=== PATIENT | female | born 1945 | race Caucasian/White ===

== ENCOUNTER → 2023-12-14 19:56 | Outpatient (REF) | payer MEDICARE, OTHER, SELFPAY | LOC: PAVMRI 19:56 | PROVIDERS: ATTENDING PHYSICIAN Orthopaedic Surgery; FAMILY PHYSICIAN Family Medicine; REFERRING PHYSICIAN Internal Medicine | DX: Z47.89 Encounter for other orthopedic aftercare (principal) | CPT/HCPCS: 73721 ==

== ENCOUNTER → 2024-02-13 12:45 | Outpatient (REF) | payer MEDICARE, OTHER, SELFPAY | LOC: WDC 12:45 | PROVIDERS: ATTENDING PHYSICIAN Nurse Practitioner Family; FAMILY PHYSICIAN Family Medicine | DX: M81.0 Age-related osteoporosis without current pathological fracture (principal); Z12.31 Encounter for screening mammogram for malignant neoplasm of breast | CPT/HCPCS: 77063; 77067; 77080 ==

== ENCOUNTER → 2024-02-16 08:58 | Outpatient (REF) | payer MEDICARE, OTHER, SELFPAY | LOC: RCS 08:58 | PROVIDERS: ATTENDING PHYSICIAN Nurse Practitioner; FAMILY PHYSICIAN Family Medicine; REFERRING PHYSICIAN Internal Medicine | DX: R00.1 Bradycardia, unspecified (principal); I10 Essential (primary) hypertension; I71.21 Aneurysm of the ascending aorta, without rupture | CPT/HCPCS: 93306 ==

== ENCOUNTER → 2025-02-21 07:08 | Outpatient (REF) | payer MEDICARE, OTHER, SELFPAY ==
[2025-02-21 08:47] LABS: HDL Cholesterol 98 mg/dl; LDL Cholesterol, Calculated 100 mg/dl; Very Low Density Lipoprotein 18 mg/dl (0-30)
== END ==
LOC: REG 07:08
PROVIDERS: ATTENDING PHYSICIAN Internal Medicine; FAMILY PHYSICIAN Family Medicine
DX: E78.00 Pure hypercholesterolemia, unspecified (principal)
CPT/HCPCS: 36415; 80061

== ENCOUNTER → 2025-02-21 07:29 | Outpatient (REF) | payer MEDICARE, OTHER, SELFPAY | LOC: WDC 07:29 | PROVIDERS: ATTENDING PHYSICIAN Nurse Practitioner Family | DX: Z12.31 Encounter for screening mammogram for malignant neoplasm of breast (principal) | CPT/HCPCS: 77063; 77067 ==

== ENCOUNTER 2025-03-03 12:22 | Emergency (ER) | payer MEDICARE, OTHER, SELFPAY ==
[2025-03-03 12:53] VITALS: BP 120/86
[2025-03-03 12:56] VITALS: BMI 22.8
[2025-03-03 13:00] VITALS: BP 118/92
--- NOTE | 2025-03-03 13:54 | ED.GENMED ---
History of Present Illness
General
Chief Complaint: Bowel Problem
Source: patient
Exam Limitations: none
Time Seen by Provider: 03/03/25 13:44
Nursing documentation reviewed up to this point in time: agreed with
History of Present Illness
History of Present Illness:
79-year-old female with history of COPD,, HTN, hypothyroid presents for not having a good bowel movement for 2 weeks. She states 2 weeks ago she was carrying laundry and tripped over a doggy gate and fell onto her left side, since then she has had
pain in her lumbar spine that has gradually gotten worse. She has taken Fleet enema, Colace, suppositories with no results. Denies abdominal pain. Denies N/V.
Past History
Past History
ED Past Medical History: COPD, HTN, Hypothyroidism and Other (Aortic aneurysm that they are watching)
ED Past Surgical History: Appendectomy, Cholecystectomy, Gynecological (Hysterectomy) and Other (Hernia repair X2)
Social History
Tobacco: Former smoker
Alcohol: Occasional
Personal:
Living: with family (Son lives with her)
Review of Systems
Review of Systems
Allergies reviewed?: Yes
All Other Systems: ROS reviewed and negative except as documented in HPI and ROS
Phy Exam
Physical Exam
Physical Exam:
GENERAL: No acute distress. A&Ox3.
CONSTITUTIONAL: Afebrile.
EYES: clear, conjunctivae normal
ENMT: moist mucus membranes, Pharynx nl
RESPIRATORY: Regular respirations, nonlabored, lungs clear.
CARDIOVASCULAR: Regular rate and rhythm, no murmurs, no rubs.
GI: Soft, nontender, normal BS
MUSCULOSKELETAL: Moves with ease. Well perfused.
SKIN: Warm, dry, pink
PSYCH: Normal mood and affect. Well kept, interactive and appropriate
NEUROLOGIC: Awake, alert and oriented. No focal neurological deficits
Course
Orders/Labs/Results
Orders:
Orders
03/03/25 13:53
LS Spine Complete, 4 View [CR Lumbar Spine Comp Min 4 Vw*] Urgent
Comment:
Reason For Exam: L S spine pain after fall
Vital Signs
Initial and Last Documented VS:
Initial Vital Signs
Temp Pulse Resp BP Pulse Ox
98.4 F 65 18 120/86 95
03/03/25 12:53 03/03/25 12:53 03/03/25 12:53 03/03/25 12:53 03/03/25 12:53
Last Documented Vital Signs
Temp Pulse Resp BP Pulse Ox
98.4 F 53 18 137/98 97
03/03/25 12:56 03/03/25 16:11 03/03/25 12:53 03/03/25 16:11 03/03/25 14:19
MDM/Problems Addressed
Differential Diagnosis Includes:
Constipation
Fracture LS-spine, contusion LS-spine
MDM/Problems Addressed:
79-year-old female with history of COPD,, HTN, hypothyroid presents for not having a good bowel movement for 2 weeks. She states 2 weeks ago she was carrying laundry and tripped over a doggy gate and fell onto her left side, since then she has had
pain in her lumbar spine that has gradually gotten worse. She has taken Fleet enema, Colace, suppositories with no results. Denies abdominal pain. Denies N/V.
Very pleasant, NAD
Lumbar spine x-ray radiology report read: No acute osseous abnormality of the lumbar spine. Incidentally there is not a significant amount of stool throughout the bowel, there is some noted in the lower bowel, there was no stool in the rectal vault
on digital exam.
Discussed the use of MiraLAX with the patient, x-ray result discussed.
Patient is out of bed, dressed self, moving around with ease.
Stable for discharge.
*Pulse Oximetry
SaO2: 94
Oxygen Mode of Delivery: Room air
Patient hypoxic: not evaluated
*Critical Care Note
Total Time (30-74mins, 75-104mins- exclusive of procedures): Not Applicable
ED Attending Note
-
Portions of this chart may have been created with voice recognition software.� Occasional wrong word or��sound alike� substitutions may have occurred due to the inherent limitations of voice recognition software.
Discharge Plan
Departure
Patient Disposition: Home (Routine Discharge)
Date of Disposition: 03/03/25
Time of Disposition: 15:52
Patient with high blood pressure during this ER visit?: No
Condition: Good
Discharge Problem:
Contusion of lower back, Constipation
Instructions: Constipation, Adult (DC), Low back pain - ED (DC), Contusion
Prescriptions:
No Action
levothyroxine [Levoxyl] 100 MCG tablet
100 mcg PO DAILY
hydrochlorothiazide 25 MG tablet
25 mg PO DAILY
mupirocin 1 APPLIC ointment
1 applic topical BID Qty: 1 0RF
hydrocodone-acetaminophen 1 TABLET tablet
1 tab PO Q4HPRN PRN (Reason: moderate-severe pain) Qty: 30 0RF
Rx Instructions:
Dx total joint replacement
ongoing therapy
1 tab moderate pain or 2 if pain severe
famotidine 20 MG tablet
20 mg PO HS Qty: 30 0RF
meloxicam 15 MG tablet
15 mg PO DAILY Qty: 14 0RF
Rx Instructions:
take w/ food
ondansetron 4 MG tablet,disintegrating
4 mg PO Q6H PRN (Reason: n/v) Qty: 14 0RF
aspirin 325 mg capsule
325 mg PO DAILY 30 Days Qty: 30 0RF
acetaminophen 500 mg capsule
1,000 mg PO Q6H PRN (Reason: pain) 14 Days Qty: 14 0RF
docusate sodium [Colace] 100 mg capsule
200 mg PO BID 14 Days Qty: 56 0RF
senna 8.6 mg capsule
8.6 mg PO BID PRN (Reason: constipation) 14 Days 0RF
Referrals:
Geovanni Evans, DO [Family Provider, Family Practice] - As needed
Activity Restrictions/Additional Instructions:
As we discussed, try MiraLAX to get your bowels moving
You may take Tylenol as needed for low back pain.
Interventions
Interventions:
*Risk Screen - Suicide Last Done: 03/03/25 12:57
*General Assessment Last Done: 03/03/25 12:56
*Neglect/Abuse Screening Last Done: 03/03/25 12:57
*ED- Fall Risk Assessment Last Done: 03/03/25 12:56
*ED COVID-19 Vaccine History Last Done: 03/03/25 12:56
*Nursing Disposition Last Done: 03/03/25 16:12
KZ-Sigmci-Kmruubglpu Assessment Last Done: 03/03/25 12:58
Discharge Date and Time
Discharge Date/Time: 03/03/25 16:13
Print Language: BULGARIAN
[2025-03-03 14:18] VITALS: BP 133/79
[2025-03-03 15:30] VITALS: BP 145/64
[2025-03-03 16:11] VITALS: BP 137/98
== END 2025-03-03 16:13 | disposition home or self-care (01) ==
LOC: EMR 12:22
PROVIDERS: EMERGENCY PHYSICIAN Emergency Medicine; FAMILY PHYSICIAN Family Medicine
DX: S30.0XXA Contusion of lower back and pelvis, initial encounter (principal); K59.00 Constipation, unspecified; W01.0XXA Fall on same level from slipping, tripping and stumbling without subsequent striking against object, initial encounter; J44.9 Chronic obstructive pulmonary disease, unspecified; I10 Essential (primary) hypertension; E03.9 Hypothyroidism, unspecified; Z86.79 Personal history of other diseases of the circulatory system; Z87.891 Personal history of nicotine dependence; Z90.49 Acquired absence of other specified parts of digestive tract; Z90.710 Acquired absence of both cervix and uterus
CPT/HCPCS: 99283; 72110